=== PATIENT | male | born 1940 | race Two or more races ===

== ENCOUNTER 2019-01-13 10:05 | Emergency (ER) | payer MEDICARE, MEDICAID ==
[~2019-01-13] VITALS: Ht 162.6 cm; Wt 80.0 kg
[~2019-01-13 10:05] MED LIST: DICL75TA5 PO; OMEP20CA4 PO
[2019-01-13 12:11] LABS: HEMATOCRIT. 42.1 % (42.0-52.0); HEMOGLOBIN. 14.2 g/dL (14.0-18.0); MEAN CORPUSCULAR HEMOGLOBIN 25.6 pg (28.0-32.0); MEAN CORPUSCULAR VOLUME 75.9 fL (80.0-94.0); MEAN PLATELET VOLUME 7.9 fl (7.4-10.4); PLATELET 227 x1000/uL (130-400); RED BLOOD CELL COUNT 5.55 mill/uL (4.7-6.1); RED CELL DISTRIBUTION WIDTH 16.8 % (11.6-14.6)
[2019-01-13 12:19] LABS: CHLORIDE 103 mEq/L (98-107)
[2019-01-13] MEDS ORDERED: SODIUM CHLORIDE 0.9% 1,000 ML IV ONE (12:25)
[2019-01-13 12:28] LABS: PARTIAL THROMBOPLASTIN TIME 32.2 sec (23.4-31.0); PROTHROMBIN TIME 10.7 sec (9.6-11.0)
[2019-01-13 12:29] LABS: CREATINE KINASE 22 IU/L (39-308)
[2019-01-13 12:31] LABS: CREATINE KINASE MB FRACTION < 1.0 ng/mL (0.5-3.6)
[2019-01-13 12:57] LABS: PLATELET ESTIMATE NORMAL
[2019-01-13] MEDS ORDERED: KETOROLAC 30MG/ML VIAL IV ONE (15:00)
[2019-01-13 15:42] LABS: CLARITY URINE CLEAR (CLEAR); COLOR URINE YELLOW (YELLOW); KETONES URINE TRACE (NEGATIVE); LEUKOCYTE ESTERASE URINE NEGATIVE (NEGATIVE); NITRITE URINE NEGATIVE (NEGATIVE); OCCULT BLOOD URINE NEGATIVE (NEGATIVE); PROTEIN URINE NEGATIVE (NEGATIVE); SPECIFIC GRAVITY URINE 1.026 (1.005-1.030); UROBILINOGEN URINE 0.2 E.U./dL (0.2-1.0)
[2019-01-13] MEDS ORDERED: TRAMADOL 50MG TABLET PO ONE (16:15)
[2019-01-13 17:01] VITALS: BP 135/65
== END 2019-01-13 17:30 | disposition home or self-care (01) ==
LOC: ER 10:05
DX: M79.10 Myalgia, unspecified site (principal); E11.9 Type 2 diabetes mellitus without complications; E86.0 Dehydration; Z90.49 Acquired absence of other specified parts of digestive tract
CPT/HCPCS: 36415; 71045; 80053; 81003; 82550; 82553; 82962; 83880; 84484; 85025; 85610; 85730; 87040; 87086; 87804; 93005; 96361; 96374; 99284; J1885; J7030

== ENCOUNTER 2021-07-25 16:53 | Emergency (ER) | payer MEDICARE, MEDICAID ==
[~2021-07-25] VITALS: Ht 162.6 cm; Wt 79.0 kg
[~2021-07-25 16:53] MED LIST changes: +AMLO10TA80 PO; +ASPI-1160 PO; +HYDR-4135 PO; +LIP40 MT
[2021-07-25] MEDS ORDERED: ACET650T37 MT (18:25)
[2021-07-25] MEDS ORDERED: DICL50TA7 MT (18:25)
[2021-07-25] MEDS ORDERED: IBUPROFEN 600MG TABLET PO ONE (18:30)
[2021-07-25] MEDS ORDERED: ACETAMINOPHEN 325MG TABLET PO ONE (18:30)
[2021-07-25 19:01] VITALS: BP 128/71
== END 2021-07-25 19:03 | disposition home or self-care (01) ==
LOC: ER 16:53
DX: M54.50 Low back pain, unspecified (principal); E11.9 Type 2 diabetes mellitus without complications; I10 Essential (primary) hypertension; Z79.82 Long term (current) use of aspirin
CPT/HCPCS: 99283

== ENCOUNTER 2021-09-11 14:44 | Emergency (ER) | payer MEDICARE, MEDICAID ==
[~2021-09-11] VITALS: Ht 165.1 cm; Wt 73.0 kg
[~2021-09-11 14:44] MED LIST changes: +ACET650T37 MT; +DICL50TA7 MT
[2021-09-11] MEDS ORDERED: ACETAMINOPHEN 325MG TABLET PO ONE (18:30)
[2021-09-11] MEDS ORDERED: IBUPROFEN 600MG TABLET PO ONE (18:30)
[2021-09-11] MEDS ORDERED: METH-653 MT (19:11)
[2021-09-11] MEDS ORDERED: METHOCARBAMOL 500MG TABLET PO ONE (19:15)
[2021-09-11 19:32] VITALS: BP 132/85
== END 2021-09-11 22:10 | disposition home or self-care (01) ==
LOC: ER 14:44
DX: S39.012A Strain of muscle, fascia and tendon of lower back, initial encounter (principal); G89.29 Other chronic pain; M54.50 Low back pain, unspecified; I10 Essential (primary) hypertension; Z98.61 Coronary angioplasty status; M54.30 Sciatica, unspecified side; X58.XXXA Exposure to other specified factors, initial encounter; Y93.89 Activity, other specified; Y92.018 Other place in single-family (private) house as the place of occurrence of the external cause
CPT/HCPCS: 99284